=== PATIENT | male | born 1990 | race Caucasian/White ===

== ENCOUNTER 2023-05-10 04:50 | Outpatient (CLI) | payer MEDICAID | END 2023-05-10 23:59 | disposition critical access hospital (66) | LOC: EMS 04:50 | DX: Z04.6 Encounter for general psychiatric examination, requested by authority (principal); R46.89 Other symptoms and signs involving appearance and behavior; R45.1 Restlessness and agitation; Z78.1 Physical restraint status | CPT/HCPCS: A0425; A0429; A0999 ==

== ENCOUNTER 2023-05-10 05:06 | Emergency (ER) | payer MEDICAID, OTHER ==
[2023-05-10] MEDS ORDERED: hydrOXYzine 50 MG/ML VIAL IM STA (05:15)
--- NOTE | 2023-05-10 05:15 | ED Physician Documentation ---
PD HPI ALTERED MENTAL STATUS - Stated complaint Stated Complaint: SHAINA - History obtained from History obtained from: Patient, EMS, Other (SHAINA form) - Additional information Additional information: BIBA. HPI from EMS, SHAINA form, and patient. Patient's answers are quiet, often brief, but appropriate. SHAINA form from police indicate "several calls on subject for yelling in the area"; when approached by police, "attempting to light something he had on his person on fire", continued to yell, not making much sense", "ran in and out of street with traffic in area. Subject stated he recently took meth". EMS says patient has been incoherent during transport to ED, sometimes yelling and other times quiet but appears to be responding to internal stimuli (manifesting as moving lips as if having conversation but not making any sounds when doing so). Patient required soft restraints BUE during transport. On my HPI, patient is continuing to move his mouth and lips as if speaking but not making any sounds. He is cooperative, follows some simple commands. He answers most of the questions posed to him, albeit softly. Some questions he does not answer until he is asked a second time. He does admit to using methamphetamines tonight.He tells me that the only prescription medications he takes his hydroxyzine and he repeatedly is requesting a dose of hydroxyzine at this time. Review of Systems Cardiac: denies: Chest pain / pressure Respiratory: denies: Dyspnea GI: denies: Abdominal Pain PD PAST MEDICAL HISTORY - Past Medical History Past Medical History: No - Allergies Allergies/Adverse Reactions: Allergies Allergy/AdvReac Type Severity Reaction Status Date / Time No Known Drug Allergies Allergy Verified 05/10/23 05:17 PD ED PE NORMAL - Vitals Vital signs reviewed: Yes - General General: No acute distress, Well developed/nourished, Other (awake, alert, oriented x 2 (does not know year)) - HEENT HEENT: Atraumatic, PERRL (equal but dilated), EOMI, Other (pasty/tacky mucous membranes) - Cardiac Cardiac: No murmur - Respiratory Respiratory: No respiratory distress, Clear bilaterally - Abdomen Abdomen: Soft, Non tender PD ED PE EXPANDED - Cardiac Cardiac: Tachy - Psych Psych: Other (appears to be responding to internal stimuli (mouthing words as if speaking although not making sounds when doing so)) Results - Vitals Vitals: Vital Signs - 24 hr 05/10/23 05/10/23 05/10/23 05:21 06:16 06:27 Temperature 38 C H 37.1 C Heart Rate 108 H 102 H Respiratory 23 18 Rate Blood Pressure 135/80 H 122/77 O2 Saturation 100 98 Oxygen O2 Source Room air - Labs Labs: Laboratory Tests 05/10/23 05/10/23 05:49 05:49 WBC 17.4 H RBC 4.33 L Hgb 12.0 L Hct 37.3 L MCV 86.1 MCH 27.7 MCHC 32.2 RDW 13.8 Plt Count 234 MPV 8.8 Neut # (Auto) 14.3 H Lymph # (Auto) 1.0 L [place] # (Auto) 1.9 H Eos # (Auto) 0.0 Baso # (Auto) 0.0 Absolute Nucleated RBC 0.00 Band Neuts % (Manual) Not Reportable Abnorm Lymph % (Manual) Not Reportable Nucleated RBC % 0.0 Neutrophils # (Manual) Not Reportable Lymphocytes # (Manual) Not Reportable Monocytes # (Manual) Not Reportable Eosinophils # (Manual) Not Reportable Basophils # (Manual) Not Reportable Differential Comment MANUAL=AUTO DIFF Platelet Estimate NORMAL (130-450,000) RBC Morph Micro Appear NORMAL APPEARANCE Sodium 137 Potassium 3.7 Chloride 103 Carbon Dioxide 24 Anion Gap 10.0 BUN 31 H Creatinine 0.9 Estimated GFR (MDRD) 97 Glucose 108 H Calcium 9.7 Magnesium 1.7 Total Bilirubin 0.9 AST 29 ALT 16 Alkaline Phosphatase 61 Total Creatine Kinase 1043 H* Total Protein 7.2 Albumin 4.8 Globulin 2.4 Albumin/Globulin Ratio 2.0 Lipase 4 L TSH 2.13 Salicylates < 1.5 Acetaminophen 0.1 Ethyl Alcohol < 10.0 PD Medical Decision Making - ED course Complexity details: reviewed results, re-evaluated patient, considered differential, d/w patient ED course: Patient is brought to the ED due to odd behavior. Patient tells me that he has been using amphetamines. Labs notable for WBC of 17.4, CPK 1043. Elevated BUN (31) with normal creatinine (0.9), likely representing dehydration. Urine drug screen is pending at the end of my shift. As noted in my HPI, patient is requesting hydroxyzine specifically. I discussed with him the option of oral hydroxyzine versus a shot (IM), and he prefers the latter, voices understanding that the injection of hydroxyzine will be faster- acting than the oral hydroxyzine. He is thus given 50 mg IM hydroxyzine.On reevaluation, this intervention did not have any noticeable effect on his odd behavior. I then discussed with the patient more medication; he is requesting more hydroxyzine. However, he is agreeable when I recommend, instead, oral lorazepam. He is given 2 mg p.o. lorazepam. It was after this medication that the labs resulted as noted above. Given his BUN/creatinine ratio suggestive of dehydration, and his elevated CPK, I then discussed with the patient my recommendation to start an IV and to give him IV fluids. He is again agreeable with my recommendation. He again is requesting more hydroxyzine, but is agreeable, instead, to more lorazepam which will be given intravenously. He is given 2 mg IV lorazepam. On reevaluation, he is still awake, alert, oriented x2. However, he is less fidgety/twitchy and no longer is mouthing words. Care of this patient is turned over to the oncoming ED physician (Dr. Boggs) at end of my shift.
[2023-05-10] MEDS ORDERED: LORazepam 1 MG TABLET PO STA (05:40)
[2023-05-10 05:54] LABS: BASOPHILS % (AUTO) 0.2 %; EOSINOPHILS % (AUTO) 0.1 %; HCT - HEMATOCRIT 37.3 % (42.0-52.0); MEAN CORPUSCULAR HEMOGLOBIN 27.7 pg (27.0-31.0); MEAN CORPUSCULAR HGB CONC 32.2 g/dL (32.0-36.0); MEAN CORPUSCULAR VOLUME 86.1 fL (80.0-94.0); MEAN PLATELET VOLUME 8.8 fL (7.4-11.4); MONOCYTES # (AUTO) 1.9 10^3/uL (0.0-1.0); MONOCYTES % (AUTO) 11.1 %; NEUTROPHILS # (AUTO) 14.3 10^3/uL (1.5-6.6); NEUTROPHILS % (AUTO) 82.1 %; PLT - PLATELET COUNT 234 10^3/uL (130-450); RED BLOOD COUNT 4.33 10^6/uL (4.70-6.10); RED CELL DISTRIBUTION WIDTH 13.8 % (12.0-15.0); WHITE BLOOD COUNT 17.4 x10^3/uL (4.8-10.8)
[2023-05-10 06:08] LABS: ACETAMINOPHEN 0.1 ug/mL; ALBUMIN 4.8 g/dL (3.2-5.5); ALKALINE PHOSPHATASE 61 IU/L (42-121); ALT ALANINE AMINOTRANSFERASE 16 IU/L (10-60); AST ASPARTATE AMINOTRANSFERASE 29 IU/L (10-42); BILIRUBIN,TOTAL 0.9 mg/dL (0.2-1.0); BUN - BLOOD UREA NITROGEN 31 mg/dL (6-20); CALCIUM 9.7 mg/dL (8.5-10.3); CARBON DIOXIDE - CO2 24 mmol/L (21-32); CHLORIDE 103 mmol/L (101-111); CREATININE 0.9 mg/dL (0.6-1.3); ETOH - ETHANOL < 10.0 mg/dL; GFR - MDRD 97 (>89); GLUCOSE 108 mg/dL (74-104); MAGNESIUM 1.7 mg/dL (1.7-2.3); POTASSIUM 3.7 mmol/L (3.5-4.5); SODIUM 137 mmol/L (135-145); TOTAL PROTEIN 7.2 g/dL (6.4-8.9)
[2023-05-10 06:13] LABS: CK- CREATINE KINASE 1043 IU/L (30-223); LIPASE 4 U/L (11-82)
[2023-05-10] MEDS ORDERED: SODIUM CHLORIDE 0.9% 1,000 ML IV STA ×4 (06:16→11:27)
[2023-05-10] MEDS ORDERED: LORazepam 2 MG/ML VIAL IVP STA (06:17)
[2023-05-10 06:22] LABS: THYROID STIMULATING HORMONE 2.13 uIU/mL (0.34-5.60)
[2023-05-10 06:25] LABS: PLATELET ESTIMATE, MANUAL NORMAL (130-450,000) (NORMAL); RBC MORPHOLOGY (MULTIPLE) NORMAL APPEARANCE (NORMAL)
[2023-05-10 06:26] LABS: DIFFERENTIAL COMMENT MANUAL=AUTO DIFF
[2023-05-10 07:19] LABS: SALICYLATE < 1.5 mg/dL
[2023-05-10 07:30] LABS: MUDS CUTOFF CONCENTRATIONS CUTOFF CONC BELOW:
[2023-05-10 07:44] LABS: BILIRUBIN,URINE NEGATIVE (NEGATIVE); GLUCOSE, URINE (UA) NEGATIVE (NEGATIVE); KETONES,URINE (UA) 15 mg/dL (NEGATIVE); LEUKOCYTE ESTERASE, URINE NEGATIVE (NEGATIVE); NITRITE,URINE NEGATIVE (NEGATIVE); OCCULT BLOOD,URINE NEGATIVE (NEGATIVE); PROTEIN,URINE 30 mg/dL (NEGATIVE); UROBILINOGEN,URINE 0.2 (NORMAL) E.U./dL (NORMAL)
--- NOTE | 2023-05-10 07:51 | ED Physician Documentation ---
ED Addendum - Addendum Addendum: 05/10/23 Patient received in signout from overnight physician. Patient is receiving IV fluids for elevated CK level with plans for recheck. He is here under an SHAINA. No prior records here but I was able to access outside records through [facility] everywhere. Patient has been seen previously in [facility] and [facility].Prior diagnoses mention alcohol use disorder and methamphetamine use. Patient has also had elevated white blood cells in the past.Most recent prior l abs are from January 28, 2023 at [facility] at which time patient was evaluated after a drug overdose. WBC was 16.9 at that time. Repeat CK is again elevated. However clinically I do not think the patient has rhabdomyolysis Requires admission for this. Social work consult has been placed. We will continue to hydrate with IV fluids but patient is otherwise medically cleared. Patient has pulled out IV. He has received 2 L of IV fluids and maintenance fluids at 250 mL/h. He has been tolerating p.o. Thus will not replace IV as patient is able to orally hydrate. 05/10/23 17:06 Patient continues to present with psychotic symptoms, Responding to internal stimuli. We will give a dose of Zyprexa to see if this helps. Third CK was also elevated but I feel that this is likely related to me thamphetamine use. Patient is tolerating p.o. intake. Does not require admission for this CK level. 05/10/23 17:26 D/W abe teacher at [facility]. They have a bed available for this patient but his white count is above the threshold of 15,000 and the CK is also elevated which they expressed concerns for. I explained that I did not feel that these were clinically significant and should be taken in context Of the patient's presentation. [facility] is requesting a repeat CBC and CK to show that the levels are at least downtrending before being able to accept the patient. 05/10/23 17:51 Repeat WBC is improved. Recheck of CK is pending. Patient signed out to oncoming provider at shift change. Departure - Departure Clinical Impression: Psychiatric symptoms Condition: Good Forms: PCP List
[2023-05-10 07:58] LABS: CLARITY,URINE CLEAR (CLEAR)
[2023-05-10 08:00] LABS: AMPHETAMINE SCREEN,URINE POSITIVE (NEGATIVE); METHAMPHETAMINES SCREEN, URINE POSITIVE (NEGATIVE)
[2023-05-10 08:01] LABS: BARBITURATE SCREEN,UR NEGATIVE (NEGATIVE); BENZODIAZEPINES SCREEN, URINE NEGATIVE (NEGATIVE); COCAINE SCREEN URINE NEGATIVE (NEGATIVE); METHADONE SCREEN, URINE NEGATIVE (NEGATIVE); OPIATE SCREEN, URINE NEGATIVE (NEGATIVE); OXYCODONE SCREEN, URINE NEGATIVE (NEGATIVE); PROPOXYPHENE SCREEN, URINE NEGATIVE (NEGATIVE); THC CANNABINOID SCREEN, URINE NEGATIVE (NEGATIVE); TRICYCLIC ANTIDEPRESSANT,URINE NEGATIVE (NEGATIVE)
[2023-05-10 08:11] LABS: BACTERIA,URINE Rare /HPF (None Seen); RBC,URINE None Seen /HPF (0-5); SQUAMOUS EPITHELIAL CELL,UR NONE SEEN (<= Few); WBC CLUMPS,URINE NONE SEEN; WBC,URINE 0-3 /HPF (0-3)
[2023-05-10 08:12] LABS: MUCUS,URINE Few Strands; SPERM,URINE PRESENT
[2023-05-10] MEDS ORDERED: OLANZapine ODT 5 MG TABLET TL STA (17:04)
[2023-05-10 17:48] LABS: HCT - HEMATOCRIT 40.2 % (42.0-52.0); HGB - HEMOGLOBIN 12.6 g/dL (14.0-18.0); MEAN CORPUSCULAR HEMOGLOBIN 27.6 pg (27.0-31.0); MEAN CORPUSCULAR HGB CONC 31.3 g/dL (32.0-36.0); MEAN PLATELET VOLUME 8.7 fL (7.4-11.4); RED BLOOD COUNT 4.57 10^6/uL (4.70-6.10); RED CELL DISTRIBUTION WIDTH 13.7 % (12.0-15.0); WHITE BLOOD COUNT 10.5 x10^3/uL (4.8-10.8)
--- NOTE | 2023-05-10 23:03 | ED Physician Documentation ---
ED Addendum - Addendum Addendum: 05/10/23 23:02 No changes during my shift, patient signed out to Dr. Solano awaiting placement.
[2023-05-11 02:46] VITALS: O2SAT 98
--- NOTE | 2023-05-11 08:27 | ED Physician Documentation ---
ED Addendum - Addendum Addendum: 05/11/23 Patient has been boarding in the emergency department overnight awaiting involuntary placement. He has been evaluated by the STEVE yesterday and they have been actively looking for placement. I did speak with Pavel mckenzie at the end of my shift yesterday and they were requesting a repeat CBC and CK. CBC normalized and his CK was starting to downtrend. This morning of repeat CK is continuing today decrease and patient continues to tolerate p.o. 05/11/23 08:36 Patient was evaluated at the bedside. He states he is feeling much better and is asking if he can leave. I explained that he is currently in the process of being involuntary leave detained due to concerns regarding his safety. When they asked if he recalls what brought him here to the emergency department he states that he was just feeling overly anxious and was probably talking to himself. I explained that there is more to the event to than that and reported to the patient that police witnessed him attempting to light something on his person on fire and that he was running in and out of traffic. Patient states that he would not do those things and was starting to raise his voice and I asked him to not yell and to speak calmly which she was able to do. Patient does admit that he was using an amphetamine like substance. He states that he does not want to hurt himself. When I ask if he feels he needs help with his substance abuse he states he does not chronically use any drugs and thus does no t feel like he needs help regarding substance abuse. Patient understands that it our health care social worker will reevaluate him this morning. Patient states that he is hungry and has not eaten his breakfast tray and is requesting more food which I have asked his RN to provide for him. As soon as I exit from the room patient continues to speak to himself With long strings of conversation and still appears to be responding to some internal stimuli. 05/11/23 10:30 Social work has seen the patient and feels that he Is not safe for discharge at this time Due to ongoing psychiatric symptoms and psychosis. He is not agreeable for treatment. She will contact the DCR again. Pavel mckenzie is requesting another CK level which she request to be drawn at 1130. 05/11/23 13:26 Patient has been evaluated by STEVE Ngo. She will again pursue involuntary detainment which the patient understands. 05/11/23 14:12 Patient has been accepted to [facility] in [place]. 05/11/23 17:00 I ordered a dose of Zyprexa for the patient to see if this helps with his hallucinations. He has otherwise been cooperative.Awaiting transport.
[2023-05-11] MEDS ORDERED: NICOTINE 21 MG PATCH TOP STA (14:11)
[2023-05-11] MEDS ORDERED: OLANZapine ODT 5 MG TABLET TL STA (16:54)
[2023-05-11 17:28] VITALS: BP 120/73
== END 2023-05-11 19:08 ==
LOC: ED 05:06
DX: R74.8 Abnormal levels of other serum enzymes (principal); R79.9 Abnormal finding of blood chemistry, unspecified; R44.0 Auditory hallucinations; Z75.1 Person awaiting admission to adequate facility elsewhere; Z20.822 Contact with and (suspected) exposure to COVID-19
CPT/HCPCS: 36415; 80053; 80306; 80307; 80320; 80329; 81001; 82550; 83690; 83735; 84443; 85025; 85027; 87635; 96361; 96372; 96374; 99284; 99285; A9270; J2060; J8499; 81003; 87086

== ENCOUNTER 2023-10-01 10:32 | Outpatient (CLI) | payer MEDICAID | END 2023-10-01 23:59 | disposition critical access hospital (66) | LOC: EMS 10:32 | DX: F10.129 Alcohol abuse with intoxication, unspecified (principal) | CPT/HCPCS: A0425; A0429; A0999 ==

== ENCOUNTER 2023-10-01 10:49 | Emergency (ER) | payer SELFPAY ==
--- NOTE | 2023-10-01 11:31 | ED Physician Documentation ---
PD HPI ALTERED MENTAL STATUS - Stated complaint Stated Complaint: ETOH - Chief complaint Chief Complaint: General - History obtained from History obtained from: Patient, EMS - History of Present Illness Timing - onset: Today Timing - duration: Other (unknown duration - pt found sleeping on ground in parking lot. Hard to arouse by [place]. Called EMS.) Timing - details: Still present (he is rousable but glassy eyes, slow to answer, and some slurring of speech, with alcohol on breath. He admits to lot of alcohol and some cannibis. Denies other drugs. Drinks irregularly per pt.) Review of Systems Unable to obtain: AMS PD PAST MEDICAL HISTORY - Past Medical History Past Medical History: Yes Cardiovascular: None Respiratory: None Endocrine/Autoimmune: None Psych: Schizophrenia - Present Medications Home Medications: Ambulatory Orders Medication Instructions Recorded Confirmed No Known Home Medications 10/01/23 10/01/23 - Allergies Allergies/Adverse Reactions: Allergies Allergy/AdvReac Type Severity Reaction Status Date / Time No Known Drug Allergies Allergy Verified 10/01/23 11:00 - Social History Does the pt smoke?: Yes Smoking Status: Current every day smoker Does the pt drink ETOH?: Yes ETOH Use: Liquor Does the pt have substance abuse?: No - Immunizations Immunizations are current?: Yes - POLST Patient has POLST: No PD ED PE NORMAL - Vitals Vital signs reviewed: Yes - General General: No acute distress, Well developed/nourished. No: Alert and oriented X 3 (person and place.) - HEENT HEENT: Atraumatic, Pharynx benign - Neck Neck: Supple, no meningeal sign, No adenopathy - Cardiac Cardiac: RRR, No murmur - Respiratory Respiratory: No respiratory distress, Clear bilaterally - Abdomen Abdomen: Soft, Non tender - Derm Derm: Normal color, Warm and dry - Extremities Extremities: No tenderness to palpate, Normal ROM s pain, No edema - Neuro Neuro: No motor deficit, No sensory deficit Results - Vitals Vitals: Vital Signs - 24 hr 10/01/23 10/01/23 10:53 12:35 Temperature 36.4 C L 36 C L Heart Rate 92 98 Respiratory 20 16 Rate Blood Pressure 134/87 H 125/80 O2 Saturation 96 100 Oxygen O2 Source Room air - Labs Labs: Laboratory Tests 10/01/23 10/01/23 10/01/23 11:41 11:43 11:43 WBC 8.8 RBC 4.77 Hgb 13.1 L Hct 41.2 L MCV 86.4 MCH 27.5 MCHC 31.8 L RDW 13.9 Plt Count 254 MPV 8.5 Neut # (Auto) 5.7 Lymph # (Auto) 2.0 [place] # (Auto) 0.9 Eos # (Auto) 0.2 Baso # (Auto) 0.1 Absolute Nucleated RBC 0.00 Nucleated RBC % 0.0 Sodium 139 Potassium 3.9 Chloride 101 Carbon Dioxide 27 Anion Gap 11.0 BUN 14 Creatinine 1.0 Estimated GFR (MDRD) 86 L Glucose 90 Calcium 9.9 Total Bilirubin 0.5 AST 29 ALT 22 Alkaline Phosphatase 69 Total Protein 7.8 Albumin 4.9 Globulin 2.9 Albumin/Globulin Ratio 1.7 Lipase < 10 L Urine Color YELLOW Urine Clarity CLEAR Urine pH 6.0 Ur Specific [place] 1.015 Urine Protein NEGATIVE Urine Glucose (UA) NEGATIVE Urine Ketones TRACE Urine Occult Blood NEGATIVE Urine Nitrite NEGATIVE Urine Bilirubin NEGATIVE Urine Urobilinogen 0.2 (NORMAL) Ur Leukocyte Esterase NEGATIVE Ur Microscopic Review NOT INDICATED Urine Culture Comments NOT INDICATED Urine Opiates Screen NEGATIVE Ur Buprenorphine Scrn NEGATIVE Ur Oxycodone Screen NEGATIVE Urine Methadone Screen NEGATIVE Ur Barbiturates Screen NEGATIVE Ur Tricyclics Screen NEGATIVE Ur Phencyclidine Scrn NEGATIVE Ur Amphetamine Screen POSITIVE H U Methamphetamines Scrn POSITIVE H U Benzodiazepines Scrn NEGATIVE Urine Cocaine Screen NEGATIVE U Cannabinoids Screen NEGATIVE Ur Drug Screen Comment CUTOFF CONC BELOW: Ethyl Alcohol 215.4 PD Medical Decision Making - ED course Complexity details: reviewed results (alcohol level 215, moderately high, but can be high enough for altered mentation if not regular drinker, combined with positive for methamphetamines. He denied meth use. ), re-evaluated patient (he was more alert and talkative, oriented and able to ambulate to bathroom and back without problems/ataxia, without an hour or two of arrival. Denies self harm ideation. He would like to get the bus up to [place] in time for the [place]. ), considered differential (poorly rousable but good vitals/sats enroute. He is awake and talking but seems inebriated on arrival. No headache nor signs/reports of head injury. ), d/w patient ED course: the patient seemed most likely just inebriated without signs/history of injury nor other co-ingestions. However deferred judgement of further workup for sobering. Once sobering in just 1-2 hours, is now walking well, talkative, denies injury/pains, nor any self harm ideations. Staying at correction and was behind the store drinking as did not have private place of his own. Departure - Departure Disposition: 01 Home, Self Care Clinical Impression: Altered mental state, Alcohol intoxication, Substance use disorder Condition: Stable Record reviewed to determine appropriate education?: Yes Instructions: ED Alcohol Intoxication Comments: Your basic blood tests including electrolytes, renal function, blood sugar and blood count are good. Your alcohol level is elevated and presumed this was the cause of your altered mentation. Try to avoid excess alcohol and other substances. Stay well-hydrated otherwise. Forms: PCP List Discharge Date/Time: 10/01/23 12:35
[2023-10-01 11:52] LABS: BASOPHILS # (AUTO) 0.1 10^3/uL (0.0-0.1); BASOPHILS % (AUTO) 0.6 %; EOSINOPHILS # (AUTO) 0.2 10^3/uL (0.0-0.7); EOSINOPHILS % (AUTO) 1.7 %; HCT - HEMATOCRIT 41.2 % (42.0-52.0); HGB - HEMOGLOBIN 13.1 g/dL (14.0-18.0); LYMPHOCYTES % (AUTO) 22.9 %; MEAN CORPUSCULAR HEMOGLOBIN 27.5 pg (27.0-31.0); MEAN CORPUSCULAR HGB CONC 31.8 g/dL (32.0-36.0); MEAN CORPUSCULAR VOLUME 86.4 fL (80.0-94.0); MEAN PLATELET VOLUME 8.5 fL (7.4-11.4); MONOCYTES # (AUTO) 0.9 10^3/uL (0.0-1.0); MONOCYTES % (AUTO) 9.6 %; NEUTROPHILS # (AUTO) 5.7 10^3/uL (1.5-6.6); PLT - PLATELET COUNT 254 10^3/uL (130-450); RED BLOOD COUNT 4.77 10^6/uL (4.70-6.10); RED CELL DISTRIBUTION WIDTH 13.9 % (12.0-15.0); WHITE BLOOD COUNT 8.8 x10^3/uL (4.8-10.8)
[2023-10-01 11:53] LABS: BILIRUBIN,URINE NEGATIVE (NEGATIVE); GLUCOSE, URINE (UA) NEGATIVE (NEGATIVE); KETONES,URINE (UA) TRACE mg/dL (NEGATIVE); LEUKOCYTE ESTERASE, URINE NEGATIVE (NEGATIVE); NITRITE,URINE NEGATIVE (NEGATIVE); OCCULT BLOOD,URINE NEGATIVE (NEGATIVE); PROTEIN,URINE NEGATIVE (NEGATIVE); UROBILINOGEN,URINE 0.2 (NORMAL) E.U./dL (NORMAL)
[2023-10-01 11:55] LABS: CLARITY,URINE CLEAR (CLEAR)
[2023-10-01 12:05] LABS: AMPHETAMINE SCREEN,URINE POSITIVE (NEGATIVE); BARBITURATE SCREEN,UR NEGATIVE (NEGATIVE); BENZODIAZEPINES SCREEN, URINE NEGATIVE (NEGATIVE); BUPRENORPHINE SCREEN, URINE NEGATIVE (NEGATIVE); COCAINE SCREEN URINE NEGATIVE (NEGATIVE); METHADONE SCREEN, URINE NEGATIVE (NEGATIVE); METHAMPHETAMINES SCREEN, URINE POSITIVE (NEGATIVE); OPIATE SCREEN, URINE NEGATIVE (NEGATIVE); OXYCODONE SCREEN, URINE NEGATIVE (NEGATIVE); THC CANNABINOID SCREEN, URINE NEGATIVE (NEGATIVE); TRICYCLIC ANTIDEPRESSANT,URINE NEGATIVE (NEGATIVE)
[2023-10-01 12:08] LABS: ALBUMIN 4.9 g/dL (3.2-5.5); ALBUMIN/GLOBULIN RATIO 1.7 (1.0-2.2); ALKALINE PHOSPHATASE 69 IU/L (42-121); ALT ALANINE AMINOTRANSFERASE 22 IU/L (10-60); AST ASPARTATE AMINOTRANSFERASE 29 IU/L (10-42); BILIRUBIN,TOTAL 0.5 mg/dL (0.2-1.0); BUN - BLOOD UREA NITROGEN 14 mg/dL (6-20); CALCIUM 9.9 mg/dL (8.5-10.3); CARBON DIOXIDE - CO2 27 mmol/L (21-32); CHLORIDE 101 mmol/L (101-111); ETOH - ETHANOL 215.4 mg/dL; GFR - MDRD 86 (>89); GLUCOSE 90 mg/dL (74-104); POTASSIUM 3.9 mmol/L (3.5-4.5); SODIUM 139 mmol/L (135-145); TOTAL PROTEIN 7.8 g/dL (6.4-8.9)
[2023-10-01 12:11] LABS: LIPASE < 10 U/L (11-82)
[2023-10-01 12:40] VITALS: BP 125/80; O2SAT 100
== END 2023-10-01 12:35 | disposition home or self-care (01) ==
LOC: EDUNIT# → ED 10:49
DX: R41.82 Altered mental status, unspecified (principal); F19.99 Other psychoactive substance use, unspecified with unspecified psychoactive substance-induced disorder; F10.129 Alcohol abuse with intoxication, unspecified; Y90.7 Blood alcohol level of 200-239 mg/100 ml; F17.200 Nicotine dependence, unspecified, uncomplicated
CPT/HCPCS: 36415; 80053; 80306; 81001; 81003; 82077; 83690; 85025; 87086; 99283